=== PATIENT | male | born 1985 | race Caucasian/White ===

== ENCOUNTER 2016-06-30 10:03 | Emergency (ER) | payer BC, OTHER ==
[~2016-06-30] VITALS: Ht 170.2 cm; Wt 125.4 kg
[2016-06-30 10:07] VITALS: Ht 170.2 cm; Wt 125.4 kg
--- OUTSIDE RECORDS SUMMARY | 2016-06-30 10:07 | XMS REPORT | Continuity of Care Document ---
Author Author [facility] Organization [facility] Address Unknown Phone Unavailable Allergies Active Description Code Type Severity Reaction Onset Reported/Identified Relationship to Patient Clinical Status Yes morphine NKMA N/A N/A 11/23/2013 Medications Problems Procedures Results Encounters ACCT No. Visit Date/Time Discharge Status Pt. Type Provider Facility Loc./Unit Complaint [id number] 08/22/2015 18:33:00 2015 23:59:00 DIS [facility]
--- OUTSIDE RECORDS SUMMARY | 2016-06-30 10:07 | XMS REPORT | Summary of Care ---
Author Author Magan Pizarro M.D. Organization Unknown Address Unknown Phone Unavailable Care Team Providers Care Crm Dynamics Developer Name Role Phone Magan Pizarro M.D. Unavailable Unavailable No Assigned PCP-Pt Confirmed PP Unavailable Unavailable Unavailable Functional Status Functional Status Health Issues* Name Dates Details Functional status health issues are not documented Status: Cognitive Status Health Issues* Name Dates Details Cognitive status health issues are not documented Status: Problems Name Dates Details High blood pressure (401.9, I10) Status: Active Prophylactic antibiotic (V58.62, Z79.2) Status: Active Encounter for vasectomy counseling (V25.09, Z30.09) Status: Active Medications Name Dates Details Cephalexin 500 MG Oral Capsule TAKE 1 CAPSULE 3 times daily, start morning of procedure Quantity: 21 Magan Pizarro M.D.* Started Active Allergies and Adverse Reactions Name Dates Details morphine Status: Active Procedures Procedure Dates Details History of Shoulder Surgery Procedures not documented Immunization Name Dates Details Immunizations not documented Family History Father* Name Dates Details Family history of diabetes mellitus (V18.0, Z83.3) Status: Active Social History Name Dates Details Smoking Status* Never smoker Vital Signs Date Test Result Details 11:20 BP Systolic 160 mm[Hg] Status: BP Diastolic 90 mm[Hg] Status: Heart Rate 89 /min Status: Height 67 in Status: Weight 170 lb Status: Body Mass Index Calculated 26.63 kg/m2 Status: Body Surface Area Calculated 1.89 m2 Status: Results Date Description Value Details Results not documented Plan of Care Planned Observations* Name Dates Details Planned Goals not documented Goal Planned Encounters* Appointment; Provider: Magan Pizarro On 11:30 Instructions * Instructions not documented Encounters Appointment; Magan Pizarro Encounter Diagnosis: Problem not documented On 10:30
--- OUTSIDE RECORDS SUMMARY | 2016-06-30 10:07 | XMS REPORT | Referral Summary ---
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 Name Role Phone No PCP, Pt States Primary Care Physician [phone] Encounter VC Date(s): 08/22/15 - 08/22/15 [facility] [address] [place] [id number] Discharge Disposition: 01-Home or Self Care Attending Physician: Pipe Siddiqui PA-C Admitting Physician: Pipe Siddiqui PA-C Vital Signs Most recent to 1 oldest [Reference Range]: Temperature Tympanic 36.9 degC [36.6-38.1 degC] (08/22/15 6:47 PM) Peripheral Pulse 90 bpm Rate [60-100 bpm] (08/22/15 6:47 PM) Blood Pressure 158/98 mmHg [90-140/60-90 mmHg] *HI* (08/22/15 6:47 PM) SpO2 97 % (08/22/15 6:47 PM) Problem List Condition Effective Dates Status Health Status Informant Other Active acne(Confirmed)1 Overweight(Confirmed Active )2 Other Active psoriasis(Confirmed) 3 Tension type Active headache(Confirmed)4 1See conversion document. 2See conversion document. 3See conversion document. 4See conversion document. Allergies, Adverse Reactions, Alerts Substance Reaction Severity Status morphine Active Medications ibuprofen 200 mg, Oral, As Indicated, Takes 3 tablets, 0 Refill(s) Start Date: 11/23/13 Status: Ordered lisinopril-hydrochlorothiazide 20 mg-12.5 mg oral tablet 1 tabs, Oral, Daily, NO MORE REFILLS UNTIL OV, # 30 tabs, 0 Refill(s), Pharmacy : [facility] #[id number] Start Date: 06/07/14 Status: Ordered Results No data available for this section Immunizations Vaccine Date Refusal Reason tetanus/diphth/pertuss (Tdap) adult/adol 08/22/15 Procedures Procedure Date Related Diagnosis Body Site Circumcision1 1See conversion document. Social History Social History Type Response Smoking Status Never smoker Assessment and Plan No data available for this section
--- OUTSIDE RECORDS SUMMARY | 2016-06-30 10:07 | XMS REPORT | Summary of Care ---
Author Author Magan Pizarro M.D. Organization Unknown Address Unknown Phone Unavailable Care Team Providers Care Sales Department Manager Name Role Phone No Assigned PCP-Pt Confirmed PP Unavailable Functional Status Functional Status Health Issues* Name Dates Details Functional status health issues are not documented Status: Cognitive Status Health Issues* Name Dates Details Cognitive status health issues are not documented Status: Problems Name Dates Details Active medical history not documented Status: Medications Name Dates Details Medication not documented Allergies and Adverse Reactions Name Dates Details Allergy history not documented Status: Procedures Procedure Dates Details Procedures not documented Immunization Name Dates Details Immunizations not documented Social History Smoking Status* Unknown if ever smoked Vital Signs Date Test Result Details No Known Vitals to report Results Date Description Value Details Results not documented Plan of Care Planned Observations* Name Dates Details Planned Goals not documented Goal Instructions * Instructions not documented Encounters Appointment; Magan Pizarro Encounter Diagnosis: Problem not documented On 10:30
[2016-06-30] MEDS ORDERED: no routine meds (10:15)
[2016-06-30] MEDS ORDERED: ONDA4TAB7 PO (10:16)
[2016-06-30] MEDS ORDERED: IBUP-1724 PO (10:16)
--- NOTE | 2016-06-30 10:30 | ERPDOC ---
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 Patient Instructions: Hypertension (ED) Problems/Meds/Labs Reviewed?: Yes Medications reviewed and manag: Yes Follow up care ordered?: Yes Mental Status: Alert, Oriented Scripts Lisinopril (Lisinopril) 10 Mg Tablet 10 MG PO DAILY for HYPERTENSION for 30 Days, #30 TAB Prov: ROMARIO LEIJA MD 06/30/16 HPI - General Medical General Chief Complaint: Hypertension Stated Complaint: HIGH BP Time Seen by Provider: 10:30 Source: patient Exam Limitations: no limitations HPI - General Medical Initial Comments Patient is a 31-year-old male, sent over from [facility] for hypertensive urgency. Patient does have a history of hypertension, was taking medication several years ago which she just stopped taking. Patient was having some chronic neck pain issues, which have been worsening for the last several months and has developed a headache in the last 3-5 days. Patient went to see his primary care physician at [facility] at that time his blood pressure was found to be 230/110, she was treated for nausea by Fatou BILLS, was referred to the ER for evaluation for his headache and severe blood pressure. EKG was taken [facility] which was found to have some strain pattern. Allergies: Coded Allergies: morphine (Verified Allergy, Unknown, 06/30/16) Past History Past Medical History Metabolic: hypertension (history of, currently not taking medications) Respiratory: DENIES: asthma Surgical History Denies Surgeries Joint: shoulder Social History Smoking Status: Never smoker Substance Use Type: does not use Alcohol Intake: none Review of Systems Constitutional Constitutional: DENIES: appetite decrease, chills, dizziness, fever, weakness Eyes Vision: DENIES: blurring, double vision, loss of visual greco ENMT Sinuses: DENIES: congestion, rhinorrhea Mouth/Throat: DENIES: scratchy throat, sore throat Cardiovascular Cardiac: DENIES: chest pain, dyspnea on exertion Pulmonary Respiratory: DENIES: cough, dyspnea, sputum, tachypnea GI Upper Abdomen: nausea, DENIES: pain, vomiting General: DENIES: frequency Musculoskeletal General: DENIES: cramps, pain, weakness Integumentary Skin: DENIES: color change, itching, rash Neurological General: headache, DENIES: change in strength, numbness, weakness Endocrine Endocrine: DENIES: heat/cold intolerance Hematologic/Lymphatic Hematologic/Lymphatic: DENIES: anemia Physical Exam General General Nourishment: well nourished, well developed General Body Habitus: well groomed Vitals and Pain First Documented Vital Signs Date Time Temp Pulse Resp B/P Pulse Ox O2 Delivery O2 Flow Rate FiO2 06/30/16 10:07 97.8 69 16 193/110 97 Room Air Weight: Kilograms: 125.400 Height (feet): 5 Height (inches): 7.00 Triage Pain Scale: RN VS reviewed by Provider: Yes Eyes (brief) Eyes Brief: found: EOMI, PERRL ENMT (brief) ENMT Brief: FOUND: mucosa moist, normal dentition, NOT FOUND: nasal erythema, pharnyx erythema, tonsillar deviation Neck (brief) Neck: NOT FOUND: adenopathy, spasm, tenderness Respiratory (brief) Respiratory: FOUND: clear all greco, equal bilaterally, NOT FOUND: rales, wheezes Cardiovascular (brief) Cardiac: FOUND: regular rate, regular rhythm Capillary Refill: <2 sec Abdomen (brief) Abdominal Brief: FOUND: bowel normo active x4, soft, NOT FOUND: tender Lymphatic (brief) Lymphatic Brief: NOT FOUND: adenopathy Musculoskeletal (brief) Musculoskeletal Brief: NOT FOUND: spasm, tenderness Integumentary (brief) Integumentary Brief: FOUND: dry, pink, warm, NOT FOUND: rash Neurologic (brief) Neurological Brief: FOUND: CN w/o gross def to obs, motor-no gross deficits, sensory-no gross deficits Psychiatric (brief) Psychiatric Brief: FOUND: alert, oriented Differential Diagnoses Considering: Acute MD, CVA, Intracranial Hemorrhage, Medication Effect, Other ( hypertensive urgency hypertensive emergency) Progress Results/Orders Orders Procedure Category Date Status Time Cbc W/Auto LAB 06/30/16 Complete Diff-Reflex Manual 10:34 Cmp - Comprehensive LAB 06/30/16 Complete Metabolic 10:34 Probnp LAB 06/30/16 Complete 10:34 Troponin I W LAB 06/30/16 Complete Hemolysis Index 10:34 Magnesium LAB 06/30/16 Complete 10:34 EKG EKG 06/30/16 Taken 10:34 Chest 1 View RAD 06/30/16 Resulted 10:34 Iv Lock (Ed Only) EDM 06/30/16 Transmitted 10:34 Hydralazine PHA 06/30/16 Complete (Apresoline) 10:45 Ct Head W/O Contrast CT 06/30/16 Resulted 10:34 Ketorolac (Toradol) PHA 06/30/16 Complete 13:00 Ondansetron Inj PHA 06/30/16 Complete (Zofran) 13:00 Lab Results Laboratory Tests Test 06/30/16 10:44 06/30/16 10:45 White Blood Count 6.7T/MM3 Red Blood Count 5.14M/MM3 Hemoglobin 14.8GM/DL Hematocrit 42.6% Mean Corpuscular Volume 82.9UM3 Mean Corpuscular Hemoglobin 28.8UUG Mean Corpuscular Hemoglobin Concent 34.7GM/DL RDW Standard Deviation 38.4FL Platelet Count 229T/MM3 Mean Platelet Volume 10.6UM3 Immature Granulocyte % (Auto) 0.1% Neutrophils (%) (Auto) 78.0% Lymphocytes (%) (Auto) 15.8% Monocytes (%) (Auto) 5.1% Eosinophils (%) (Auto) 0.7% Basophils (%) (Auto) 0.3% Absolute Immature Granulocyte (auto 0.01T/MM3 Absolute Neutrophils (auto) 5.2T/MM3 Absolute Lymphocytes (auto) 1.1T/MM3 Absolute Monocytes (auto) 0.3T/MM3 Absolute Eosinophils (auto) 0.1T/MM3 Absolute Basophils (auto) 0.0T/MM3 Turbidity < 20 Sodium Level 142MEQ/L Potassium Level 5.0MEQ/L Chloride Level 102MEQ/L Carbon Dioxide Level 28MEQ/L Anion Gap 12MEQ/L Blood Urea Nitrogen 18.0MG/DL Creatinine 0.8MG/DL Glomerular Filtration Rate Calc 112 BUN/Creatinine Ratio 23RATIO Glucose Level 108MG/DL Calculated Osmolality 276MOSM/KG Calcium Level 9.1MG/DL Magnesium Level 2.4MG/DL Total Bilirubin 1.20MG/DL Icterus Index < 2 Aspartate Amino Transf (AST/SGOT) 57U/L Alanine Aminotransferase (ALT/SGPT) 50U/L Alkaline Phosphatase 57U/L Troponin I 0.020ng/ml RO-Lai-Y-Type Natriuretic Peptide 36PG/ML Total Protein 8.3G/DL Albumin 4.6G/DL Globulin 3.7G/DL Albumin/Globulin Ratio 1.2RATIO Chemistry Specimen Hemolysis 201 Medications Current ED Medications Hydralazine HCl (Apresoline) 20 mg O ONCE IV Last administered on 06/30/16 11 :59; Start 06/30/16 at 10:45; Stop 06/30/16 at 10:46; Status DC Ketorolac Tromethamine (Toradol) 30 mg O ONCE IV Last administered on 12:58; Start 06/30/16 at 13:00; Stop 06/30/16 at 13:01; Status DC Ondansetron HCl (Zofran) 4 mg O ONCE IV Last administered on 06/30/16 12:57; Start 06/30/16 at 13:00; Stop 06/30/16 at 13:01; Status DC Progress Progress Patient's blood pressure has improved with hydralazine, EKG changes have resolved with resolution of blood pressure issues. Patient CT scan of his head is negative patient has been treated for headache. Dr. An has come by have reviewed laboratories EKG with him, okay to discharge patient home will start lisinopril 10 mg. At the request of Dr. An I discussed case with Dr. Mccloud who concurs with lisinopril 10 mg have patient follow-up with him in the next 24-48 hrs. ROMARIO LEIJA MD Jun 30, 2016 10:30
--- OUTSIDE RECORDS SUMMARY | 2016-06-30 10:39 | XMS REPORT | Continuity of Care Document ---
Author Author [facility] Organization [facility] Address Unknown Phone Unavailable Allergies Active Description Code Type Severity Reaction Onset Reported/Identified Relationship to Patient Clinical Status Yes morphine NKMA N/A N/A 11/23/2013 Medications Problems Procedures Results Encounters ACCT No. Visit Date/Time Discharge Status Pt. Type Provider Facility Loc./Unit Complaint [id number] 08/22/2015 18:33:00 2015 23:59:00 [facility]
--- NOTE | 2016-06-30 10:45 | NUR ---
LAB LAB IN ROOM FOR BLOOD DRAW
[2016-06-30 10:53] LABS: BASOPHILS % (AUTO) 0.3 % (0-2); EOSINOPHILS # (AUTO) 0.1 T/MM3 (0-0.5); EOSINOPHILS % (AUTO) 0.7 % (0-4); HCT - HEMATOCRIT 42.6 % (41-53); HGB - HEMOGLOBIN 14.8 GM/DL (13.5-17.5); IMMATURE GRANULOCYTE # (AUTO) 0.01 T/MM3 (0.00-0.03); IMMATURE GRANULOCYTE % (AUTO) 0.1 % (0.0-0.5); LYMPHOCYTES # (AUTO) 1.1 T/MM3 (1-4.8); LYMPHOCYTES % (AUTO) 15.8 % (23-45); MEAN CORPUSCULAR HGB 28.8 UUG (26-34); MEAN CORPUSCULAR HGB CONC(MCHC 34.7 GM/DL (31-37); MEAN CORPUSCULAR VOLUME 82.9 UM3 (80-100); MEAN PLATELET VOLUME 10.6 UM3 (9.4-12.4); MONOCYTES # (AUTO) 0.3 T/MM3 (0-0.8); MONOCYTES % (AUTO) 5.1 % (0-9.0); NEUTROPHILS #(AUTO)-ABSOLUTE 5.2 T/MM3 (1.8-7.7); RED BLOOD COUNT 5.14 M/MM3 (4.50-5.90); WBC - WHITE BLOOD COUNT 6.7 T/MM3 (4.5-11.0)
--- NOTE | 2016-06-30 10:53 | NUR ---
RADIOLOGY PT TO RADIOLOGY PER CART
[2016-06-30 11:02] LABS: ALBUMIN 4.6 G/DL (3.5-5.0); ALBUMIN/GLOBULIN RATIO 1.2 RATIO (1.1-2.2); ALKALINE PHOSPHATASE 57 U/L (38-126); ALT (SGPT) 50 U/L (21-72); ANION GAP 12 MEQ/L (5-15); AST (SGOT) 57 U/L (17-59); BUN/CREATININE RATIO 23 RATIO (6-26); CALCIUM 9.1 MG/DL (8.4-10.2); CHLORIDE 102 MEQ/L (98-107); CO2 - CARBON DIOXIDE 28 MEQ/L (22-30); CREATININE 0.8 MG/DL (0.8-1.5); GLOMERULAR FILTRATION RATE 112; GLUCOSE 108 MG/DL (75-110); MAGNESIUM 2.4 MG/DL (1.6-2.3); SODIUM 142 MEQ/L (134-144); TOTAL PROTEIN 8.3 G/DL (6.3-8.2)
--- NOTE | 2016-06-30 11:02 | NUR ---
RADIOLOGY PT FROM RADIOLOGY PER CART
--- NOTE | 2016-06-30 11:10 | NUR ---
REPORT REPORT TO AND CARE ASSUMED BY SERA MARKHAM
[2016-06-30 11:14] LABS: PROBNP 36 PG/ML (0-175)
--- NOTE | 2016-06-30 11:28 | DI ---
EXAM: CT HEAD W/O CONTRAST LOCATION OF DICTATION: [place] HISTORY: ITS.REASON: severe headache significantly elevated blood pressures COMPARISON: No prior studies available for comparison. TECHNIQUE: Multiple contiguous axial images were obtained of the head without contrast. Iterative Reconstruction dose reducing technique was utilized. FINDINGS: The ventricles and sulci are within normal limits for the patient's age. There is no midline shift or mass effect. The basilar cisterns are patent. The alfaro-white matter interface is within normal limits. There is no evidence for acute intraparenchymal or extra-axial hemorrhage. The paranasal sinuses and mastoid air cells are clear. The globes and orbits are within normal limits. There are no calvarial fractures demonstrated. IMPRESSION: 1. No evidence for acute intracranial process or hemorrhage. .
--- NOTE | 2016-06-30 12:28 | DI ---
EXAM: CHEST 1 VIEW LOCATION OF DICTATION: [place] HISTORY: ITS.REASON: cardiac evaluation history of hypertension and cardiomegaly COMPARISON: No prior studies available for comparison. FINDINGS: The heart size is normal. The mediastinal configuration is within normal limits. Limited depth of inspiration. There are no consolidating opacities or pleural effusions. There is no pneumothorax. The osseous structures are within normal limits for the patient's age. IMPRESSION: No acute cardiopulmonary abnormalities demonstrated. .
[2016-06-30] MEDS ORDERED: LISI10TA7 PO (12:46)
[2016-06-30] MEDS ORDERED: KETOROLAC 30mg/ml INJECTION IV ONE (13:00)
[2016-06-30] MEDS ORDERED: ONDANSETRON 4mg/2ml INJECTION IV ONE (13:00)
[2016-06-30 13:05] VITALS: BP 156/85; PULSE 86; RESP 16; TEMP 97.8; O2SAT 97
--- NOTE | 2016-06-30 13:14 | NUR ---
Depart Patient departed and out of room, noted EKG order not completed. Pt out at registration desk and asked to return for EKG.
--- NOTE | 2016-06-30 13:18 | NUR ---
EKG EKG complete, Dr. An at bedside.
--- NOTE | 2016-06-30 13:21 | NUR ---
Discharge Patient leaves
== END 2016-06-30 13:05 | disposition home or self-care (01) ==
LOC: ED 10:03
DX: I16.0 Hypertensive urgency (principal)
CPT/HCPCS: 70450; 71010; 80053; 83735; 83880; 84484; 85025; 93005; 96374; 96375; 99284; J0360; J1885; J2405